=== PATIENT | male | born 1965 | race Caucasian/White ===

== ENCOUNTER 2021-08-03 00:23 | Emergency (ER) | payer MEDICAID ==
[~2021-08-03] VITALS: Ht 165.1 cm; Wt 55.1 kg
[~2021-08-03 00:23] MED LIST: IBUP-2028 MT; MAGN296S70 MT
[2021-08-03] MEDS ORDERED: ACETAMINOPHEN 325MG TABLET PO ONE (03:00)
[2021-08-03 03:10] LABS: BASOPHILS % 0.4 % (0.0-2.0); EOSINOPHILS % 1.1 % (0.0-5.0); HEMOGLOBIN. 12.9 g/dL (14.0-18.0); MEAN CORPUSCULAR HEMOGLOBIN 28.7 pg (28.0-32.0); MEAN CORPUSCULAR VOLUME 84.9 fL (80.0-94.0); MEAN PLATELET VOLUME 7.7 fl (7.4-10.4); MONOCYTES % 8.5 % (2.0-8.0); PLATELET 350 x1000/uL (130-400); RED BLOOD CELL COUNT 4.48 mill/uL (4.7-6.1)
[2021-08-03 03:16] LABS: CHLORIDE 110 mEq/L (98-107)
[2021-08-03 03:26] LABS: CLARITY URINE CLEAR (CLEAR); COLOR URINE YELLOW (YELLOW); KETONES URINE NEGATIVE (NEGATIVE); LEUKOCYTE ESTERASE URINE TRACE (NEGATIVE); NITRITE URINE NEGATIVE (NEGATIVE); OCCULT BLOOD URINE TRACE (NEGATIVE); PH URINE 5.5 (4.5-8.0); PROTEIN URINE 2+ (NEGATIVE); SPECIFIC GRAVITY URINE 1.023 (1.005-1.030); UROBILINOGEN URINE 0.2 E.U./dL (0.2-1.0)
[2021-08-03] MEDS ORDERED: DEXTROSE 50% WATER 50ML SYRINGE IV ONE (04:00)
[2021-08-03] MEDS ORDERED: IBUP-2028 MT (05:28)
[2021-08-03] MEDS ORDERED: CEPH500C2 MT (05:28)
[2021-08-03] MEDS ORDERED: CEPHALEXIN 250MG CAPSULE PO ONE (05:30)
[2021-08-03 06:14] VITALS: BP 131/96
== END 2021-08-03 06:32 | disposition home or self-care (01) ==
LOC: ER 00:23
DX: R10.30 Lower abdominal pain, unspecified (principal); E11.649 Type 2 diabetes mellitus with hypoglycemia without coma; I10 Essential (primary) hypertension; Z90.49 Acquired absence of other specified parts of digestive tract
CPT/HCPCS: 36415; 76870; 80053; 81003; 82962; 85025; 93976; 99284

== ENCOUNTER 2021-08-04 23:37 | Emergency (ER) | payer MEDICAID ==
[~2021-08-04] VITALS: Ht 165.1 cm; Wt 55.4 kg
[~2021-08-04 23:37] MED LIST changes: +CEPH500C2 MT
[2021-08-05] MEDS ORDERED: MORPHINE SULFATE 4 MG/ML CPJ (NOT FOR IM USE) IV STA (02:26)
[2021-08-05] MEDS ORDERED: ONDANSETRON HCL 4MG/2ML INJ IV STA (02:26)
[2021-08-05 03:01] LABS: EOSINOPHILS % 1.3 % (0.0-5.0); HEMATOCRIT. 37.7 % (42.0-52.0); HEMOGLOBIN. 12.8 g/dL (14.0-18.0); LYMPHOCYTES % 29.9 % (20.0-50.0); MEAN CORPUSCULAR HEMOGLOBIN 28.7 pg (28.0-32.0); MEAN CORPUSCULAR VOLUME 84.8 fL (80.0-94.0); MEAN PLATELET VOLUME 8.4 fl (7.4-10.4); MONOCYTES % 9.7 % (2.0-8.0); NEUTROPHILS % 58.1 % (40.0-76.0); PLATELET 351 x1000/uL (130-400); RED BLOOD CELL COUNT 4.45 mill/uL (4.7-6.1); RED CELL DISTRIBUTION WIDTH 13.9 % (11.6-14.6)
[2021-08-05 03:11] LABS: CHLORIDE 108 mEq/L (98-107)
[2021-08-05] MEDS ORDERED: ONDANSETRON HCL 4MG/2ML INJ IV SCH (03:45)
[2021-08-05] MEDS ORDERED: MORPHINE SULFATE 4 MG/ML CPJ (NOT FOR IM USE) IV SCH (03:45)
[2021-08-05 03:48] VITALS: BP 168/69
[2021-08-05] MEDS ORDERED: TRAM50TA3 MT (03:49)
[2021-08-05] MEDS ORDERED: IBUP-2029 MT (03:49)
== END 2021-08-05 04:39 | disposition home or self-care (01) ==
LOC: ER 23:37
DX: N50.811 Right testicular pain (principal); E11.9 Type 2 diabetes mellitus without complications; Z87.19 Personal history of other diseases of the digestive system; I10 Essential (primary) hypertension; Z90.49 Acquired absence of other specified parts of digestive tract; Z79.899 Other long term (current) drug therapy
CPT/HCPCS: 36415; 76870; 80053; 85025; 93976; 96374; 96375; 99284; J2270; J2405

== ENCOUNTER 2021-08-29 23:55 | Emergency (ER) | payer MEDICAID ==
[~2021-08-29] VITALS: Ht 162.6 cm; Wt 55.5 kg
[~2021-08-29 23:55] MED LIST changes: +IBUP-2029 MT; +TRAM50TA3 MT
[2021-08-30 00:05] VITALS: BP 136/72
[2021-08-30] MEDS ORDERED: SODIUM CHLORIDE 0.9% 1,000 ML IV ONE (00:15)
[2021-08-30 03:17] LABS: BASOPHILS % 0.3 % (0.0-2.0); EOSINOPHILS % 2.8 % (0.0-5.0); HEMATOCRIT. 38.9 % (42.0-52.0); LYMPHOCYTES % 38.3 % (20.0-50.0); MEAN CORPUSCULAR HEMOGLOBIN 28.4 pg (28.0-32.0); MEAN CORPUSCULAR VOLUME 85.3 fL (80.0-94.0); MEAN PLATELET VOLUME 7.5 fl (7.4-10.4); NEUTROPHILS % 47.6 % (40.0-76.0); PLATELET 379 x1000/uL (130-400); RED BLOOD CELL COUNT 4.56 mill/uL (4.7-6.1); RED CELL DISTRIBUTION WIDTH 13.6 % (11.6-14.6)
[2021-08-30 03:22] LABS: CHLORIDE 105 mEq/L (98-107)
[2021-08-30 03:30] LABS: AMYLASE 85 IU/L (25-115); BETA HYDROXYBUTYRATE 0.1 mMol/L (0.0-0.3)
[2021-08-30 03:42] LABS: CLARITY URINE CLEAR (CLEAR); COLOR URINE YELLOW (YELLOW); KETONES URINE NEGATIVE (NEGATIVE); LEUKOCYTE ESTERASE URINE NEGATIVE (NEGATIVE); NITRITE URINE NEGATIVE (NEGATIVE); OCCULT BLOOD URINE NEGATIVE (NEGATIVE); PH URINE 5.5 (4.5-8.0); PROTEIN URINE 1+ (NEGATIVE); SPECIFIC GRAVITY URINE 1.026 (1.005-1.030); UROBILINOGEN URINE 0.2 E.U./dL (0.2-1.0)
== END 2021-08-30 05:47 | disposition home or self-care (01) ==
LOC: ER 23:55
DX: E11.65 Type 2 diabetes mellitus with hyperglycemia (principal); I10 Essential (primary) hypertension; R94.31 Abnormal electrocardiogram [ECG] [EKG]
CPT/HCPCS: 36415; 80053; 81003; 82010; 82150; 82962; 85025; 93005; 96360; 99284; J7030